=== PATIENT | female | born 1950 | race Caucasian/White ===

== ENCOUNTER 2018-07-02 13:04 | Outpatient (CLI) | payer MEDICARE, OTHER | END 2018-07-02 13:05 | disposition home or self-care (01) | LOC: RT 13:04 | PROVIDERS: ATTEND Internal Medicine | DX: R06.09 Other forms of dyspnea (principal) | CPT/HCPCS: 94010; 94729 ==

== ENCOUNTER 2018-07-05 13:31 | Outpatient (CLI) | payer MEDICARE, OTHER | END 2018-07-05 13:32 | disposition home or self-care (01) | LOC: DI 13:31 | PROVIDERS: ATTEND Internal Medicine | DX: R06.00 Dyspnea, unspecified (principal); I10 Essential (primary) hypertension; I77.810 Thoracic aortic ectasia | CPT/HCPCS: 93306 ==

== ENCOUNTER 2018-10-26 13:46 | Day surgery (SDC) | payer MEDICARE, OTHER ==
--- NOTE | 2018-10-26 14:25 | ANESTHESIA ---
Pre-Anesthesia VS, & Labs - Diagnosis gerd and screening - Procedure egd, colonoscopy Vital Signs: Temp Pulse Resp BP Pulse Ox 37 C 66 18 150/82 H 98 10/26/18 14:18 10/26/18 14:18 10/26/18 14:18 10/26/18 14:18 10/26/18 14:18 Height 5 ft 3 in Weight (kg) 73.7 kg - NPO >8 hours - Is Patient ?: Not Applicable Home Medications and Allergies Home Medications: Ambulatory Orders Calcium Carbonate [Calcium] 600 mg PO DAILY 10/25/18 Ranitidine HCl [Acid Control] 150 mg PO DAILY 10/25/18 Levothyroxine [Synthroid] 25 mcg PO DAILY 05/04/16 Montelukast [Singulair] 10 mg PO QPM 05/04/16 Calcium Carbonate [Calcium] 600 mg PO DAILY 10/25/18 Ranitidine HCl [Acid Control] 150 mg PO DAILY 10/25/18 Allergies/Adverse Reactions: Allergies Allergy/AdvReac Type Severity Reaction Status Date / Time aspirin Allergy Hives Verified 05/04/16 00:41 codeine Allergy Unknown Verified 05/04/16 00:41 ibuprofen Allergy Hives Verified 05/04/16 00:41 clarithromycin AdvReac Anxiety Verified 10/25/18 14:40 chocolate AdvReac Headache Uncoded 10/25/18 15:06 Anes History & Medical History - Anesthetic History Anesthesia Complications: reports: No previous complications Family history of Anesthesia Complications: Denies Family history of Malignant Hyperthermia: Denies - Medical History Cardiovascular: reports: None Gastrointestinal: reports: GERD, Colon polyps, Chronic diarrhea, Chronic constipation, Cholelithiasis Urinary: reports: None Musculoskeletal: reports: Osteoarthritis, Chronic back pain Endocrine/Autoimmune: reports: HyPOthyroidism Skin: reports: Eczema Smoking Status: Never smoker - Surgical History General: Colonoscopy Eyes Ears Nose Throat (EENT): Cataracts, Tonsil/Adenoidectomy Gynecologic: Dilation and currettage Exam General: Alert, Oriented x3, Cooperative, No acute distress Dental: Other (caps) Mouth Openin Fingerbreadth Neck Mobility: Normal Mallampati classification: II Thyromental Distance: 4-6 cm Respiratory: Lungs clear, Normal breath sounds, No respiratory distress, No accessory muscle use Cardiovascular: Regular rate, Normal S1, Normal S2, No murmurs Plan Anesthesia Type: MAC Consent for Procedure(s) Verified and Reviewed: No Code Status: Attempt Resuscitation ASA classification: 2-Mild systemic disease Is this case an emergency?: No
[2018-10-26] MEDS ORDERED: LACTATED RINGERS 1,000 ML IV ONE (14:37)
[2018-10-26] MEDS ORDERED: BENZOCAINE/TETRACAINE/BUTAMBEN 20 GM TOP ONE (15:15)
[2018-10-26] MEDS ORDERED: PROPOFOL 200 MG/20 ML VIAL IVP ONE (16:06)
[2018-10-26] MEDS ORDERED: LIDOCAINE-MPF 2% 5 ML VIAL IM ONE (16:06)
[2018-10-26 16:28] VITALS: BP 150/69
== END 2018-10-26 13:47 | disposition home or self-care (01) ==
LOC: SDS 13:46
PROVIDERS: ATTEND Internal Medicine
PROC: 0DB68ZX Excision of Stomach, Via Natural or Artificial Opening Endoscopic, Diagnostic (ICD-10-PCS; 2018-10-26)
PROC: 0DBE8ZX Excision of Large Intestine, Via Natural or Artificial Opening Endoscopic, Diagnostic (ICD-10-PCS; principal; 2018-10-26 14:45)
PROC: 0DB98ZX Excision of Duodenum, Via Natural or Artificial Opening Endoscopic, Diagnostic (ICD-10-PCS; 2018-10-26 14:45)
DX: K21.9 Gastro-esophageal reflux disease without esophagitis (principal); K57.30 Diverticulosis of large intestine without perforation or abscess without bleeding; K63.89 Other specified diseases of intestine; K64.8 Other hemorrhoids; E03.9 Hypothyroidism, unspecified
CPT/HCPCS: 43239; 45380; A9270; J7120

== ENCOUNTER 2019-05-06 18:54 | Emergency (ER) | payer MEDICARE, OTHER ==
[2019-05-06 19:02] VITALS: BP 158/89
--- NOTE | 2019-05-06 19:11 | ED Physician Documentation ---
PD HPI UPPER EXT INJURY - Stated complaint Stated Complaint: LT FINGER LAC - Chief complaint Chief Complaint: Laceration - History obtained from History obtained from: Patient - History of Present Illness Location: Left, Finger (3rd) Type of injury: Laceration Where injury occurred: Home Timing - details: Abrupt onset Pain level max: 2 Pain level now: 1 Improved by: Rest Worsened by: Moving, Palpating Contributing factors: No: Anticoagulated - Additonal information Additional information: Patient sustained a laceration to the left third digit, mainly across the nail. 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 HEENT: Cataracts, Tonsil/Adenoidectomy - Present Medications Home Medications: Ambulatory Orders Medication Instructions Recorded Confirmed Levothyroxine [Synthroid] 25 mcg PO DAILY 05/04/16 10/26/18 Montelukast [Singulair] 10 mg PO QPM 05/04/16 10/26/18 Calcium Carbonate [Calcium] 600 mg PO DAILY 10/25/18 10/26/18 - Allergies Allergies/Adverse Reactions: Allergies Allergy/AdvReac Type Severity Reaction Status Date / Time aspirin Allergy Hives Verified 05/06/19 19:02 codeine Allergy Unknown Verified 05/06/19 19:02 ibuprofen Allergy Hives Verified 05/06/19 19:02 shellfish derived Allergy Cramps Verified 05/06/19 19:02 clarithromycin AdvReac Anxiety Verified 05/06/19 19:02 chocolate AdvReac Headache Uncoded 05/06/19 19:02 - Social History Does the pt smoke?: No Smoking Status: Never smoker Does the pt drink ETOH?: No Does the pt have substance abuse?: No - Immunizations Immunizations are current?: Yes PD ED PE NORMAL - Vitals Vital signs reviewed: Yes - General General: Alert and oriented X 3, Well developed/nourished - HEENT HEENT: Moist mucous membranes - Derm Derm: Warm and dry - Extremities Extremities: Other (L 3rd digit - 0.2 cm laceration across the dorsum of the nail. No bleeding. Otherwise normal examination of the finger) - Neuro Neuro: Alert and oriented X 3 Results - Vitals Vitals: Vital Signs - 24 hr 05/06/19 18:58 Temperature 36.5 C Heart Rate 74 Respiratory 18 Rate Blood Pressure 158/89 H O2 Saturation 96 Oxygen O2 Source Room air PD MEDICAL DECISION MAKING - ED course Complexity details: considered differential, d/w patient ED course: Small laceration across the dorsum of the nail. Dermabond was applied so the nail will grow out together. Tetanus is up-to-date. Patient counseled regarding signs and symptoms for which I believe and urgent re-evaluation would be necessary. Patient with good understanding of and agreement to plan and is comfortable going home at this time This document was made in part using voice recognition software. While efforts are made to proofread this document, sound alike and grammatical errors may occur. No subungual hematoma. No active bleeding Departure - Departure Disposition: 01 Home, Self Care Clinical Impression: Finger laceration Qualifiers: Encounter type: initial encounter Finger: middle finger Damage to nail status: with damage Foreign body presence: without foreign body Laterality: left Qualified Code(s): S61.313A - Laceration without foreign body of left middle finger with damage to nail, initial encounter Condition: Good Instructions: ED Laceration Ext Skin Glue Follow-Up: SHIKHA SAGE ARNP [Primary Care Provider] - As Needed Comments: Return if you notice redness, swelling or drainage from the wound. Keeping a clear nail greek on that the fingernail will help to allow to grow out as 1 piece. Discharge Date/Time: 05/06/19 19:15
== END 2019-05-06 19:15 | disposition home or self-care (01) ==
LOC: ED 18:54
DX: S61.213A Laceration without foreign body of left middle finger without damage to nail, initial encounter (principal); W45.0XXA Nail entering through skin, initial encounter; Y92.009 Unspecified place in unspecified non-institutional (private) residence as the place of occurrence of the external cause; E03.9 Hypothyroidism, unspecified
CPT/HCPCS: 99281; 99282

== ENCOUNTER 2020-05-31 10:03 | Outpatient (CLI) | payer MEDICARE, OTHER | END 2020-05-31 10:04 | disposition home or self-care (01) | LOC: DI 10:03 | PROVIDERS: ATTEND Nurse Practitioner Family | DX: I71.9 Aortic aneurysm of unspecified site, without rupture (principal) | CPT/HCPCS: 93306 ==

== ENCOUNTER 2020-11-03 15:16 | Emergency (ER) | payer MEDICARE, OTHER ==
[2020-11-03 15:48] LABS: BILIRUBIN,URINE NEGATIVE (NEGATIVE); GLUCOSE, URINE (UA) NEGATIVE (NEGATIVE); KETONES,URINE (UA) NEGATIVE (NEGATIVE); LEUKOCYTE ESTERASE, URINE NEGATIVE (NEGATIVE); NITRITE,URINE NEGATIVE (NEGATIVE); OCCULT BLOOD,URINE SMALL (NEGATIVE); PROTEIN,URINE NEGATIVE (NEGATIVE); UROBILINOGEN,URINE 0.2 (NORMAL) E.U./dL (NORMAL)
[2020-11-03 15:52] LABS: CLARITY,URINE CLEAR (CLEAR)
[2020-11-03 16:16] LABS: BACTERIA,URINE None Seen /HPF (None Seen); RBC,URINE 0-5 /HPF (0-5); SQUAMOUS EPITHELIAL CELL,UR RARE Squamous (<= Few); WBC,URINE 0-3 /HPF (0-5)
[2020-11-03] MEDS ORDERED: SODIUM CHLORIDE 0.9% 1,000 ML IV STA (16:28)
--- NOTE | 2020-11-03 16:29 | ED Physician Documentation ---
PD HPI ABD PAIN - Stated complaint Stated Complaint: ABD PX - Chief complaint Chief Complaint: Abd Pain - History obtained from History obtained from: Patient - Additional information Additional information: 69-year-old woman with no history of abdominal surgeries save a D&C post childbirth presents with lower abdominal pain starting yesterday. Pain gets worse with bowel movements or with urinating but she does not have dysuria per se. She does have a history of diverticula on prior colonoscopy. She had some chills last night. She declines pain medication on initial evaluation. 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 and currettage HEENT: Cataracts, Tonsil/Adenoidectomy - Present Medications Home Medications: Ambulatory Orders Medication Instructions Recorded Confirmed Levothyroxine [Synthroid] 25 mcg PO DAILY 05/04/16 11/03/20 Montelukast [Singulair] 10 mg PO QPM 05/04/16 11/03/20 Calcium Carbonate [Calcium] 600 mg PO DAILY 10/25/18 11/03/20 Amox/Clav 875/125 [Augmentin] 1 each PO Q12H #20 tablet 11/03/20 Ipratropium Bandana 1 spray EMMANUEL BID 11/03/20 11/03/20 - Allergies Allergies/Adverse Reactions: Allergies Allergy/AdvReac Type Severity Reaction Status Date / Time aspirin Allergy Hives Verified 11/03/20 15:27 codeine Allergy Unknown Verified 11/03/20 15:27 ibuprofen Allergy Hives Verified 11/03/20 15:27 shellfish derived Allergy Cramps Verified 11/03/20 15:27 clarithromycin AdvReac Anxiety Verified 11/03/20 15:27 chocolate AdvReac Headache Uncoded 11/03/20 15:27 - Social History Does the pt smoke?: No Smoking Status: Never smoker Does the pt drink ETOH?: No Does the pt have substance abuse?: No - Immunizations Immunizations are current?: Yes PD ED PE NORMAL - Vitals Vital signs reviewed: Yes - General General: Alert and oriented X 3, No acute distress - HEENT HEENT: PERRL, EOMI - Neck Neck: Supple, no meningeal sign, No bony TTP - Cardiac Cardiac: RRR, No murmur - Respiratory Respiratory: No respiratory distress, Clear bilaterally - Abdomen Abdomen: Other (Focally tender in the suprapubic and right lower quadrant area without surgical signs.) - Back Back: No CVA TTP, No spinal TTP - Derm Derm: Normal color, Warm and dry - Extremities Extremities: No edema, No calf tenderness / cord - Neuro Neuro: Alert and oriented X 3, Normal speech Results - Vitals Vitals: Vital Signs - 24 hr 11/03/20 11/03/20 15:20 17:26 Temperature 98.1 C H Heart Rate 92 99 Respiratory 16 18 Rate Blood Pressure 147/72 H 143/73 H O2 Saturation 97 97 Oxygen O2 Source Room air - Labs Labs: Laboratory Tests 11/03/20 11/03/20 11/03/20 15:43 16:44 16:44 WBC 12.4 H RBC 4.00 L Hgb 12.5 Hct 36.7 L MCV 91.8 MCH 31.3 H MCHC 34.1 RDW 12.4 Plt Count 206 MPV 9.4 Neut # (Auto) 9.7 H Lymph # (Auto) 1.5 [place] # (Auto) 1.1 H Eos # (Auto) 0.0 Baso # (Auto) 0.0 Absolute Nucleated RBC 0.00 Nucleated RBC % 0.0 Sodium 135 Potassium 3.5 Chloride 101 Carbon Dioxide 25 Anion Gap 9.0 BUN 11 Creatinine 0.8 Estimated GFR (MDRD) 71 L Glucose 115 H Calcium 8.8 Total Bilirubin 0.8 AST 14 ALT 13 Alkaline Phosphatase 56 Total Protein 6.6 L Albumin 4.1 Globulin 2.5 Albumin/Globulin Ratio 1.6 Lipase 22 Urine Color LT. YELLOW Urine Clarity CLEAR Urine pH 6.0 Ur Specific [place] <=1.005 Urine Protein NEGATIVE Urine Glucose (UA) NEGATIVE Urine Ketones NEGATIVE Urine Occult Blood SMALL H Urine Nitrite NEGATIVE Urine Bilirubin NEGATIVE Urine Urobilinogen 0.2 (NORMAL) Ur Leukocyte Esterase NEGATIVE Urine RBC 0-5 Urine WBC 0-3 Ur Squamous Epith Cells RARE Squamous Urine Bacteria None Seen Ur Microscopic Review INDICATED Urine Culture Comments NOT INDICATED - Rads (name of study) CT a/p Radiology: EMP read contemporaneously PD MEDICAL DECISION MAKING - ED course ED course: 69-year-old woman with lower abdominal pain of 2 days duration with some chills last night. CT with evidence of chronic cholecystitis as well as concern for uncomplicated diverticulitis. I had a long discussion with her about dietary advice as well as current recommendations per the [place] [employer] regarding antibiotics. After discussion she would like to take a prescription for Augmentin as a [id number] approach but not started immediately. Departure - Departure Disposition: Home, Self Care Clinical Impression: Diverticulitis of gastrointestinal tract Condition: Good Record reviewed to determine appropriate education?: Yes Instructions: ED Diverticulitis Follow-Up: Tyson Jones MD [Provider Admit Priv/Credential] - Prescriptions: Amox/Clav 875/125 [Augmentin] 1 each PO Q12H #20 tablet Comments: As discussed, it looks like you have uncomplicated diverticulitis tonight. You also have evidence for potential chronic cholecystitis. For the chronic cholecystitis you can follow-up with the general surgeon listed on this form. For the diverticulitis, after discussion we have decided to give you a prescription for antibiotics, but with a "wait and see approach. If not better over the next couple of days or if worsening you can start the antibiotics. Either way you should do a clear liquid diet for the next 48 hours or so, and then a low residual diet for a day or 2 after that. Return for new or worsening symptoms, especially high fevers. Follow-up with your doctor regardless.
[2020-11-03] MEDS ORDERED: IOVERSOL 320 100 ML VIAL IVP ONE ×2 (16:32→17:33)
[2020-11-03 16:52] LABS: BASOPHILS % (AUTO) 0.3 %; EOSINOPHILS % (AUTO) 0.3 %; HCT - HEMATOCRIT 36.7 % (37.0-47.0); HGB - HEMOGLOBIN 12.5 g/dL (12.0-16.0); LYMPHOCYTES # (AUTO) 1.5 10^3/uL (1.5-3.5); LYMPHOCYTES % (AUTO) 11.9 %; MEAN CORPUSCULAR HEMOGLOBIN 31.3 pg (27.0-31.0); MEAN CORPUSCULAR HGB CONC 34.1 g/dL (32.0-36.0); MEAN CORPUSCULAR VOLUME 91.8 fL (81.0-99.0); MEAN PLATELET VOLUME 9.4 fL (7.9-10.8); MONOCYTES # (AUTO) 1.1 10^3/uL (0.0-1.0); MONOCYTES % (AUTO) 9.1 %; NEUTROPHILS # (AUTO) 9.7 10^3/uL (1.5-6.6); NEUTROPHILS % (AUTO) 78.1 %; PLT - PLATELET COUNT 206 10^3/uL (130-450); RED CELL DISTRIBUTION WIDTH 12.4 % (12.0-15.0); WHITE BLOOD COUNT 12.4 x10^3/uL (4.8-10.8)
[2020-11-03 17:02] LABS: ALBUMIN 4.1 g/dL (3.2-5.5); ALBUMIN/GLOBULIN RATIO 1.6 (1.0-2.2); BILIRUBIN,TOTAL 0.8 mg/dL (0.2-1.0); CALCIUM 8.8 mg/dL (8.5-10.3); CREATININE 0.8 mg/dL (0.4-1.0); POTASSIUM 3.5 mmol/L (3.5-5.0); TOTAL PROTEIN 6.6 g/dL (6.7-8.2)
[2020-11-03 17:33] VITALS: BP 143/73
--- NOTE | 2020-11-03 18:01 | CT Report ---
PROCEDURE: Abdomen/Pelvis W INDICATIONS: low abd pain CONTRAST: IV CONTRAST: Optiray 320 ml: 100 PO CONTRAST: *NO PO CONTRAST TECHNIQUE: After the administration of intravenous contrast, 5 mm thick sections acquired from the diaphragms to the symphysis. 5 mm thick coronal and sagittal reformats were acquired. For radiation dose reducti on, the following was used: automated exposure control, adjustment of mA and/or kV according to taryn ent size. COMPARISON: 05/04/2016. FINDINGS: Image quality: Excellent. ABDOMEN: Lung bases: Lung bases are clear. Heart size is normal. Solid organs: Liver and spleen are normal in size and enhancement. Multiple low-density liver lesion s are stable, and likely represent liver cysts and possible hemangiomata. Gallbladder contains [place] calcified gallstones and demonstrates mild gallbladder wall thickening. The appearance is similar to the earlier study. Biliary system is non dilated. Pancreas enhances normally. No adrenal nodule s. Kidneys demonstrate normal size and enhancement, without hydronephrosis. Peritoneum and bowel: There is acute diverticulitis involving the region of the rectosigmoid junction . There are diverticuli and there is wall edema. There is inflammatory change in the adjacent fat. Co uld community relations representative images are images 63 and 64 of series 3. There is no free air or abscess cavity. N o free fluid. Nodes and vessels: No retroperitoneal or mesenteric adenopathy by size criteria. Aorta and inferior vena cava are normal in size. Miscellaneous: No ventral hernias. PELVIS: Genitourinary: Bladder wall thickness is normal. Miscellaneous: There is a small right inguinal hernia containing minimal fluid. Bones: No suspicious bony lesions. No vertebral body compression fractures. Lumbar degenerative ch xuan. Degenerative anterolisthesis of L4 on L5 with posterior disc bulge and facet and ligament hyper trophy result in at least moderate canal stenosis. IMPRESSION: 1. Acute diverticulitis of the rectosigmoid region. 2. Gallbladder findings may indicate chronic cholecystitis. 3. Small right inguinal hernia containing fat and a small amount of fluid. 4. Incidental note made of canal stenosis at L4-L5. Reviewed by: Danielito Brennan MD on 11/03/2020 5:00 PM JANINE Approved by: Danielito Brennan MD on 11/03/2020 5:00 PM AKSHIRLENE Station ID: [id number]
== END 2020-11-03 18:17 | disposition home or self-care (01) ==
LOC: ED 15:16
DX: K57.32 Diverticulitis of large intestine without perforation or abscess without bleeding (principal); R93.2 Abnormal findings on diagnostic imaging of liver and biliary tract
CPT/HCPCS: 36415; 74177; 80053; 81001; 83690; 85025; 96360; 99284; Q9967; 81003; 87086

== ENCOUNTER 2021-07-18 13:57 | Outpatient (CLI) | payer MEDICARE ==
--- NOTE | 2021-07-18 17:06 | DEXA Report ---
PROCEDURE: Dexa Spine and/or Hip INDICATIONS: AGE RELATED OSTEOPOROSIS W/O PATHOLOGICAL FX TECHNIQUE: Dual energy x-ray absorptiometry (DXA) was performed on a [employer] System. Regions measur ed are the AP Spine, femoral neck, and if needed forearm. COMPARISON: None. FINDINGS: Lumbar Spine: Bone Mineral Density 0.933 g/cm/cm,T score -2.1 Left Hip: Bone Mineral Density 0.843 g/cm/cm,T score -1.3 Left Femoral Neck: Bone Mineral Density 0.789 g/cm/cm, T score -1.8 (T score greater or equal to -1.0: NORMAL) (T score from -1.1 to -2.4: OSTEOPENIA) (T score less than or equal to -2.5 to: OSTEOPOROSIS) Impression: Osteopenia of the lumbar spine and left hip. Patients with diagnosis of osteoporosis or osteopenia should have regular bone mineral density assess ment. For those eligible for Medicare, routine testing is allowed once every 2 years. Testing frequ ency can be increased for patients who have rapidly progressing disease or for those who are receivin g medical therapy to restore bone mass. Reviewed by: So Vaca MD on 07/18/2021 5:05 PM PST Approved by: So Vaca MD on 07/18/2021 5:05 PM PST Station ID: [id number]
== END 2021-07-18 13:58 | disposition home or self-care (01) ==
LOC: DI 13:57
PROVIDERS: ATTEND Nurse Practitioner Family
DX: Z78.0 Asymptomatic menopausal state (principal); M85.89 Other specified disorders of bone density and structure, multiple sites

== ENCOUNTER 2021-07-24 10:58 | Outpatient (CLI) | payer MEDICARE ==
--- NOTE | 2021-07-24 15:04 | Ultrasound Report ---
PROCEDURE: Head or Neck Soft Tissue INDICATIONS: PAINFUL SWALLOWING. TECHNIQUE: Real-time scanning was performed of the thyroid gland, with image documentation. COMPARISON: None FINDINGS: Right: Thyroid lobe measures 3.7 x 1.4 x 1.4 cm, and is homogeneous in echotexture. Left: Removed. Isthmus: Removed IMPRESSION: Left lobe and isthmus resection. No enlarged lymph nodes or masses. Reviewed by: Josephine Baeza MD on 07/24/2021 3:03 PM PDT Approved by: Josephine Baeza MD on 07/24/2021 3:03 PM PDT Station ID: [id number]
== END 2021-07-24 10:59 | disposition home or self-care (01) ==
LOC: DI 10:58
PROVIDERS: ATTEND Nurse Practitioner Family
DX: R13.19 Other dysphagia (principal); E89.0 Postprocedural hypothyroidism

== ENCOUNTER 2021-09-08 10:04 | Outpatient (CLI) | payer MEDICARE ==
--- NOTE | 2021-09-15 13:21 | Mammography Report ---
BILATERAL DIGITAL SCREENING MAMMOGRAM 3D/2D: 09/08/2021 CLINICAL: Routine screening. Family history of breast cancer. No prior exams were available for comparison. The tissue of both breasts is predominantly fatty. There is a possible an asymmetry with grouped fine calcifications in the right breast central to the nipple anterior depth. There is axillary adenopathy associated with the asymmetry. There also is a possible an asymmetry with grouped fine calcifications in the right breast at 9 o'devante ck middle depth. There is architectural distortion associated with the asymmetry. Additionally, there is a possible an asymmetry with grouped fine calcifications in the right breast a t 11 o'clock middle depth. There is architectural distortion associated with the asymmetry. There is a possible an asymmetry with grouped fine calcifications in the left breast at 1 o'clock mid dle depth. No other significant masses or calcifications are seen in either breast. IMPRESSION: INCOMPLETE: NEEDS ADDITIONAL IMAGING EVALUATION The possible asymmetry in the right breast central to the nipple anterior depth is indeterminate. Ad ditional views with possible ultrasound are recommended. The possible asymmetry in the right breast at 9 o'clock middle depth is indeterminate. Additional vi ews with possible ultrasound are recommended. The possible asymmetry in the right breast at 11 o'clock middle depth is indeterminate. Additional v iews with possible ultrasound are recommended. The possible asymmetry in the left breast at 1 o'clock middle depth is indeterminate. Additional vie ws with possible ultrasound are recommended. This exam was interpreted at Station ID: [id number]. NOTE: For mammograms, a report in lay terms will be sent to the patient. Approximately 15% of breast malignancies will not be visualized mammographically. In the management of a palpable breast mass, a negative mammogram must not discourage biopsy of a clinically suspicious lesion. Electronically Signed By: Orestes Gardner M.D., jr/lizbeth:09/15/2021 10:05:19 ACR BI-RADS Category 0: Incomplete 3340F PARENCHYMAL PATTERN: (F) - The breast(s) demonstrate(s) diffuse fatty replacement. BI-RADS CATEGORY: (0) - 0 Mammo and [place] [id number] Immediate follow-up LATERALITY: (B)
== END 2021-09-08 10:05 | disposition home or self-care (01) ==
LOC: DI.S 10:04
PROVIDERS: ATTEND Nurse Practitioner Family
DX: Z12.31 Encounter for screening mammogram for malignant neoplasm of breast (principal); Z80.3 Family history of malignant neoplasm of breast; R92.8 Other abnormal and inconclusive findings on diagnostic imaging of breast

== ENCOUNTER 2021-11-19 10:17 | Outpatient (CLI) | payer MEDICARE ==
--- NOTE | 2021-11-20 14:37 | Mammography Report ---
BILATERAL DIGITAL DIAGNOSTIC MAMMOGRAM 3D/2D: 11/19/2021 CLINICAL: Patient returns today to evaluate asymmetries and calc in bilateral breasts. Comparison is made to exams dated: 11/15/2015 mammogram, 08/15/2014 mammogram, 04/28/2013 mammogram, and 04/14/2013 mammogram - [facility]. The tissue of both breasts is predominantly fatty. The possible benign asymmetry in the right breast central to the nipple anterior depth is not reprodu eliud and presumably represented superimposed breast tissue. This is not seen in additional views. The possible benign asymmetry with grouped fine calcifications in the right breast at 9 o'clock middl e depth is not reproduced and presumably represented superimposed breast tissue. This is not seen in additional views. The possible benign asymmetry in the right breast at 11 o'clock middle depth is not reproduced and pr esumably represented superimposed breast tissue. This is not seen in additional views. The possible benign asymmetry with grouped fine calcifications in the left breast at 1 o'clock middle depth is not reproduced and presumably represented superimposed breast tissue. No other significant masses or calcifications are seen in either breast. IMPRESSION: BENIGN There is no mammographic evidence of malignancy. Return to annual mammogram screening schedule is rec ommended. Based on the Tyrer Cuzick model (a risk assessment model) the patients lifetime risk is 4.0% and her 10 year risk is 3.0%. According to the ACR, ACS, and NCCN guidelines, an annual breast MRI exam carmen g with mammogram is recommended if the patients lifetime risk is 20% or greater. This exam was interpreted at Station ID: [id number]. NOTE: For mammograms, a report in lay terms will be sent to the patient. Approximately 15% of breast malignancies will not be visualized mammographically. In the management of a palpable breast mass, a negative mammogram must not discourage biopsy of a clinically suspicious lesion. Electronically Signed By: Raul Garcia acr/:11/19/2021 11:31:13 ACR BI-RADS Category 2: Benign Finding(s) 3342F PARENCHYMAL PATTERN: (F) - The breast(s) demonstrate(s) diffuse fatty replacement. BI-RADS CATEGORY: (2) - 2 Mammogram [id number] return to screening LATERALITY: (B)
== END 2021-11-19 10:18 | disposition home or self-care (01) ==
LOC: DI 10:17
PROVIDERS: ATTEND Nurse Practitioner Family
DX: R92.8 Other abnormal and inconclusive findings on diagnostic imaging of breast (principal)

== ENCOUNTER 2023-07-15 08:00 | Outpatient (CLI) | payer MEDICARE ==
--- NOTE | 2023-07-16 13:25 | XRAY Report ---
PROCEDURE: Hand 3+V RT INDICATIONS: RIGHT HAND PAIN TECHNIQUE: 3 views of the hand(s) acquired. COMPARISON: None. FINDINGS: Bones: No fractures or dislocations. Mild phalangeal joint degeneration. Severe degenerative change s of the first CMC and triscaphe joint. Diffusely decreased osseous mineralization. No suspicious bon y lesions. Soft tissues: No suspicious soft tissue calcifications or masses. IMPRESSION: No acute bony abnormality. Severe degenerative changes of the first CMC and triscaphe joint. Reviewed by: Irving Wong MD on 07/16/2023 1:24 PM PST Approved by: Irving Wong MD on 07/16/2023 1:24 PM [facility] Station ID: [id number]
== END 2023-07-15 23:59 | disposition home or self-care (01) ==
LOC: DI.S 08:00
PROVIDERS: ATTEND Registered Nurse
DX: M18.11 Unilateral primary osteoarthritis of first carpometacarpal joint, right hand (principal); M19.031 Primary osteoarthritis, right wrist

== ENCOUNTER 2023-08-20 16:35 | Outpatient (CLI) | payer MEDICARE ==
--- NOTE | 2023-08-21 16:58 | XRAY Report ---
PROCEDURE: Shoulder 2+V RT INDICATIONS: FROZEN RT SHOULDER TECHNIQUE: 3 views of the shoulder were acquired. COMPARISON: None. FINDINGS: Bones: No fractures or dislocations. No suspicious bony lesions. Visualized ribs appear intact. Moderate acromioclavicular and glenohumeral degenerative narrowing. Minimal periarticular osteophytes are present. Soft tissues: No suspicious soft tissue calcifications. The visualized lungs are within normal limi ts. IMPRESSION: Acromioclavicular and glenohumeral arthritic change. Reviewed by: Josephine Baeza MD on 08/21/2023 4:57 PM PDT Approved by: Josephine Baeza MD on 08/21/2023 4:57 PM PDT Station ID: [id number]
--- NOTE | 2023-08-21 17:02 | XRAY Report ---
PROCEDURE: Hand 3+V LT INDICATIONS: OSTEOARTHRITIES TECHNIQUE: 3 views of the hand(s) acquired. COMPARISON: None. FINDINGS: Bones: No fractures or dislocations. No suspicious bony lesions. Moderate to severe IP degenerati ve narrowing including severe first CMC change. Areas of subchondral sclerosis are present most sever e at the first CMC joint. Scattered areas of periarticular osteophytes are present. There are periart icular lucencies identified at the DIP joint of the third digit. There is subluxation at the second D IP and first DIP joints. Soft tissues: No suspicious soft tissue calcifications or masses. IMPRESSION: Moderate to severe arthritic change most severe at the third DIP and first CMC joints. Areas of periarticular lucency are most prominent at the third DIP joint suggestive of subchondral cy st. However, erosions cannot be excluded and recommend correlation to patient's symptoms and laborato ry values. Reviewed by: Josephine Baeza MD on 08/21/2023 5:00 PM PDT Approved by: Josephine Baeza MD on 08/21/2023 5:00 PM PDT Station ID: [id number]
--- NOTE | 2023-08-21 17:06 | XRAY Report ---
PROCEDURE: Cervical Spine w/Flex/Ext 6+V INDICATIONS: NECK ARTHRALGIA,FROZEN RT SHOULDER, OSTEOARTHRITIE TECHNIQUE: 7 views of the cervical spine were acquired. COMPARISON: None. FINDINGS: Bones: No fractures or dislocations to the 17th 1 level. No suspicious bony lesions. Multilevel deg enerative disc space narrowing most severe at C3-4 and C5-6, C6-7. Very minimal anterior osteophytes are present. Multilevel uncovertebral arthropathy is present. Minimal foraminal narrowing is present bilaterally most prominent at C5-6, C6-7. There is normal range of motion between flexion and extensi on, with preserved normal bony alignment. Soft tissues: Prevertebral soft tissues are normal in thickness. IMPRESSION: Multilevel degenerative changes as described above. Reviewed by: Josephine Baeza MD on 08/21/2023 5:05 PM PDT Approved by: Josephine Baeza MD on 08/21/2023 5:05 PM PDT Station ID: [id number]
== END 2023-08-20 16:36 | disposition home or self-care (01) ==
LOC: DI.S 16:35
PROVIDERS: ATTEND Internal Medicine
DX: M19.011 Primary osteoarthritis, right shoulder (principal); M18.12 Unilateral primary osteoarthritis of first carpometacarpal joint, left hand; M19.042 Primary osteoarthritis, left hand; M47.812 Spondylosis without myelopathy or radiculopathy, cervical region

== ENCOUNTER 2023-10-05 14:28 | Emergency (ER) | payer MEDICARE ==
[2023-10-05 15:09] LABS: BASOPHILS % (AUTO) 0.6 %; EOSINOPHILS % (AUTO) 0.3 %; HGB - HEMOGLOBIN 12.6 g/dL (12.0-16.0); LYMPHOCYTES # (AUTO) 0.8 10^3/uL (1.5-3.5); LYMPHOCYTES % (AUTO) 11.8 %; MEAN CORPUSCULAR HEMOGLOBIN 30.7 pg (27.0-31.0); MEAN CORPUSCULAR HGB CONC 33.2 g/dL (32.0-36.0); MEAN CORPUSCULAR VOLUME 92.5 fL (81.0-99.0); MEAN PLATELET VOLUME 9.9 fL (7.9-10.8); MONOCYTES # (AUTO) 0.9 10^3/uL (0.0-1.0); MONOCYTES % (AUTO) 13.2 %; NEUTROPHILS % (AUTO) 73.8 %; PLT - PLATELET COUNT 189 10^3/uL (130-450); RED BLOOD COUNT 4.11 10^6/uL (4.20-5.40); RED CELL DISTRIBUTION WIDTH 12.6 % (12.0-15.0); WHITE BLOOD COUNT 6.8 x10^3/uL (4.8-10.8)
[2023-10-05 15:26] LABS: ALBUMIN/GLOBULIN RATIO 1.8 (1.0-2.2); BILIRUBIN,TOTAL 0.5 mg/dL (0.2-1.0); CALCIUM 9.4 mg/dL (8.5-10.3); CREATININE 0.9 mg/dL (0.6-1.3); POTASSIUM 3.4 mmol/L (3.5-4.5); TOTAL PROTEIN 6.2 g/dL (6.4-8.9)
[2023-10-05 16:50] LABS: BILIRUBIN,URINE NEGATIVE (NEGATIVE); GLUCOSE, URINE (UA) NEGATIVE (NEGATIVE); KETONES,URINE (UA) NEGATIVE (NEGATIVE); LEUKOCYTE ESTERASE, URINE NEGATIVE (NEGATIVE); NITRITE,URINE NEGATIVE (NEGATIVE); OCCULT BLOOD,URINE NEGATIVE (NEGATIVE); PROTEIN,URINE NEGATIVE (NEGATIVE); UROBILINOGEN,URINE 0.2 (NORMAL) E.U./dL (NORMAL)
[2023-10-05 16:51] LABS: CLARITY,URINE CLEAR (CLEAR)
--- NOTE | 2023-10-05 18:10 | ED Physician Documentation ---
History of Present Illness - Stated complaint Stated Complaint: RT ABD PX - Chief complaint Chief Complaint: Abd Pain - History obtained from History obtained from: Patient - History of Present Illness Timing: Today Pain level max: 7 Pain level now: 7 - Additonal information Additional information: Patient is a 72-year-old female who presents to the emergency department with right lower quadrant abdominal pain that started about 4-1/2 hours ago. She states that she sometimes has a lump that goes in and out. She states that today the lump would not go back in and became hard. She states she has diffuse abdominal pain now. No vomiting. Nothing makes it better. Worse with palpation and movement. No diarrhea or constipation. No dysuria or urinary frequency. Review of Systems Constitutional: denies: Fever, Chills Respiratory: denies: Cough GI: denies: Vomiting, Diarrhea Skin: denies: Rash Musculoskeletal: denies: Neck pain, Back pain Neurologic: denies: Headache PD PAST MEDICAL HISTORY - Past Medical History Cardiovascular: None Respiratory: Sleep apnea Endocrine/Autoimmune: HyPOthyroidism GI: GERD, Colon polyps, Chronic diarrhea, Chronic constipation, Diverticulitis, Cholelithiasis : None HEENT: Chronic vision loss Psych: Anxiety, Post traumatic stress disorder Musculoskeletal: Osteoarthritis, Chronic back pain Derm: Eczema - Past Surgical History Past Surgical History: Yes 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 HEENT: Cataracts, Tonsil/Adenoidectomy - Present Medications Home Medications: Ambulatory Orders Medication Instructions Recorded Confirmed Levothyroxine [Synthroid] 25 mcg PO DAILY 05/04/16 11/03/20 Montelukast [Singulair] 10 mg PO QPM 05/04/16 11/03/20 Calcium Carbonate [Calcium] 600 mg PO DAILY 10/25/18 11/03/20 Amox/Clav 875/125 [Augmentin] 1 each PO Q12H #20 tablet 11/03/20 Ipratropium [place] 1 spray EMMANUEL BID 11/03/20 11/03/20 - Allergies Allergies/Adverse Reactions: Allergies Allergy/AdvReac Type Severity Reaction Status Date / Time aspirin Allergy Hives Verified 10/05/23 14:44 codeine Allergy Unknown Verified 10/05/23 14:44 ibuprofen Allergy Hives Verified 10/05/23 14:44 shellfish derived Allergy Cramps Verified 10/05/23 14:44 clarithromycin AdvReac Anxiety Verified 10/05/23 14:44 chocolate AdvReac Headache Uncoded 10/05/23 14:44 - Social History Does the pt smoke?: No Smoking Status: Never smoker Does the pt drink ETOH?: No Does the pt have substance abuse?: No - Immunizations Immunizations are current?: Yes PD ED PE NORMAL - Vitals Vital signs reviewed: Yes - General General: Alert and oriented X 3, No acute distress - HEENT HEENT: Moist mucous membranes - Neck Neck: Supple, no meningeal sign - Cardiac Cardiac: RRR, Strong equal pulses - Respiratory Respiratory: No respiratory distress, Clear bilaterally - Abdomen Abdomen: Soft, Other (Small firm lump consistent with a femoral hernia. Reducible in the emergency department but was tender with palpation. Otherwise benign abdominal exam) - Back Back: No CVA TTP, No spinal TTP - Derm Derm: Warm and dry - Neuro Neuro: Alert and oriented X 3 Results - Vitals Vitals: Vital Signs - 24 hr 10/05/23 10/05/23 14:41 19:39 Temperature 36.8 C Heart Rate 76 76 Respiratory 18 16 Rate Blood Pressure 143/72 H 135/69 H O2 Saturation 99 94 Oxygen O2 Source Room air - Labs Labs: Laboratory Tests 10/05/23 10/05/23 10/05/23 14:52 14:52 16:45 WBC 6.8 RBC 4.11 L Hgb 12.6 Hct 38.0 MCV 92.5 MCH 30.7 MCHC 33.2 RDW 12.6 Plt Count 189 MPV 9.9 Neut # (Auto) 5.0 Lymph # (Auto) 0.8 L [place] # (Auto) 0.9 Eos # (Auto) 0.0 Baso # (Auto) 0.0 Absolute Nucleated RBC 0.00 Nucleated RBC % 0.0 Sodium 133 L Potassium 3.4 L Chloride 99 L Carbon Dioxide 27 Anion Gap 7.0 BUN 17 Creatinine 0.9 Estimated GFR (MDRD) 61 L Glucose 146 H Calcium 9.4 Total Bilirubin 0.5 AST 12 ALT 7 L Alkaline Phosphatase 78 Total Protein 6.2 L Albumin 4.0 Globulin 2.2 Albumin/Globulin Ratio 1.8 Lipase 27 Urine Color YELLOW Urine Clarity CLEAR Urine pH 7.0 Ur Specific [place] 1.015 Urine Protein NEGATIVE Urine Glucose (UA) NEGATIVE Urine Ketones NEGATIVE Urine Occult Blood NEGATIVE Urine Nitrite NEGATIVE Urine Bilirubin NEGATIVE Urine Urobilinogen 0.2 (NORMAL) Ur Leukocyte Esterase NEGATIVE Ur Microscopic Review NOT INDICATED Urine Culture Comments NOT INDICATED PD Medical Decision Making - ED course Complexity details: reviewed results, re-evaluated patient, considered differential, d/w patient ED course: Patient's hernia was reduced in the emergency department. She was given a dose of Tylenol. Her pain resolved. Tolerating p.o. without difficulty. Abdomen is soft, nontender nondistended on serial exam. No elevated anion gap. Carbon dioxide is normal. No evidence of ischemic bowel. No pain with eating and drinking. No vomiting. Recommend that she follow-up with her doctor as an outpatient for management of the hernia. Patient counseled regarding signs and symptoms for which I believe and urgent re-evaluation would be necessary. Patient with good understanding of and agreement to plan and is comfortable going home at this time This document was made in part using voice recognition software. While efforts are made to proofread this document, sound alike and grammatical errors may occur. Departure - Departure Disposition: 01 Home, Self Care Clinical Impression: Hernia Condition: Good Instructions: ED Hernia Inguinal Follow-Up: Fior De La Torre MD [Primary Care Provider] - [facility] [Provider Group] Sami Gaston MD [Provider Admit Priv/Credential] - Comments: You have a hernia on your right side. This was reduced in the emergency department. It is recommended that you follow-up with a surgeon to discuss operative repair. Please return if the hernia becomes stuck and painful again. Please return if you worsen. Forms: PCP List Discharge Date/Time: 10/05/23 19:43
[2023-10-05] MEDS: SODIUM CHLORIDE 0.9% 500 ML IV STA (18:27)
[2023-10-05] MEDS: ACETAMINOPHEN 325 MG TABLET PO STA (18:40)
[2023-10-05] MEDS: MORPHINE 2 MG/ML CARPUJECT IVP STA (18:46)
[2023-10-05 19:45] VITALS: BP 135/69; O2SAT 94
== END 2023-10-05 19:43 | disposition home or self-care (01) ==
LOC: ED 14:28
DX: K41.90 Unilateral femoral hernia, without obstruction or gangrene, not specified as recurrent (principal)
CPT/HCPCS: 36415; 80053; 81003; 83690; 85025; 99283; A9270; 81001; 87086

== ENCOUNTER 2023-10-19 08:00 | Outpatient (CLI) | payer MEDICARE ==
--- NOTE | 2023-10-19 12:03 | XRAY Report ---
PROCEDURE: Chest 2V INDICATIONS: BRONCHITIS TECHNIQUE: 2 views of the chest were acquired. COMPARISON: None. FINDINGS: Surgical changes and devices: None. Lungs and pleura: Mild bilateral interstitial prominence. No focal consolidation. No pleural effusio ns or pneumothorax. Mediastinum: Mediastinal contours appear normal. Heart size is normal. Bones and chest wall: No suspicious bony lesions. Overlying soft tissues appear unremarkable. IMPRESSION: 1. No acute cardiopulmonary process. 2. Mild bilateral interstitial prominence. Reviewed by: Susan Mejias MD on 10/19/2023 11:02 AM JANINE Approved by: Susan Mejias MD on 10/19/2023 11:02 AM JANINE Station ID: [id number]
== END 2023-10-19 23:59 | disposition home or self-care (01) ==
LOC: DI.S 08:00
PROVIDERS: ATTEND Physician Assistant
DX: J40 Bronchitis, not specified as acute or chronic (principal); R05.9 Cough, unspecified

== ENCOUNTER 2023-10-22 15:11 | Outpatient (CLI) | payer MEDICARE ==
--- NOTE | 2023-10-22 21:58 | MRI Report ---
PROCEDURE: Shoulder RT WO INDICATIONS: FROZEN R SHOULDER TECHNIQUE: Noncontrast oblique coronal T2 fast spin echo with fat saturation, oblique sagittal T1 spin echo and T2 fast spin echo with fat saturation, axial T1 spin echo and T2 fast spin echo with fat saturation t hrough the shoulder. COMPARISON: Right shoulder radiograph dated 08/20/2023. FINDINGS: Image quality: Excellent. Rotator cuff: Moderate grade articular surface partial-thickness tear involving anterior fibers of di stal supraspinatus at its insertion on humeral head. There is moderate to high-grade bursal surface p artial-thickness tear involving posterior fibers of supraspinatus near musculotendinous junction. Dis howard infraspinatus tendinosis is seen. Low-grade intrasubstance partial thickness involving superior f ibers of distal subscapularis is also noted. No full-thickness rotator cuff tendon rupture. Mild supr aspinatus muscle atrophy is seen on sagittal images. Bones and bursae: No bone marrow contusions or fractures. [id number] acromioclavicular joint o steoarthritic changes are seen. Type II acromion. Moderate joint effusion and subacromial subdeltoid bursal fluid, no gross loose bodies. Bursitis cannot be excluded. Capsule and soft tissues: There is signal abnormality and fraying of superior anterior labrum suggest cinda of superior anterior labral tear. The long head of the biceps tendon demonstrates normal location and morphology. The rotator interval appears normal, without fibrosis. The coracohumeral ligament appearance thickened. Thickened inferior glenohumeral ligament is also noted. IMPRESSION: 1. Thickened inferior glenohumeral ligament and coracohumeral ligament which can be seen associated w ith adhesive capsulitis, suggest clinical correlation. 2. Moderate grade articular surface partial-thickness tear involving anterior fibers of distal supras pinatus at its insertion on humeral head. Moderate to high-grade bursal surface partial-thickness inv olving posterior fibers of supraspinatus near musculotendinous junction. Mild supraspinatus muscle at rophy. 3. Distal infraspinatus tendinosis. Low-grade partial-thickness tear involving superior fibers of dis howard subscapularis. No full-thickness rotator cuff tendon rupture. 4. Mild to moderate acromioclavicular joint osteoarthritis. No fracture or dislocation. Moderate join t effusion and subacromial subdeltoid bursal fluid, low-grade bursitis cannot be excluded. 5. Suggestion of superior anterior labral tear at 12 to 1:00 position. Reviewed by: Fito Ahumada MD on 10/22/2023 9:56 PM PDT Approved by: Fito Ahumada MD on 10/22/2023 9:56 PM PDT Station ID: [id number]
== END 2023-10-22 15:12 | disposition home or self-care (01) ==
LOC: DI 15:11
PROVIDERS: ATTEND Internal Medicine
DX: M75.01 Adhesive capsulitis of right shoulder (principal); M75.111 Incomplete rotator cuff tear or rupture of right shoulder, not specified as traumatic; M62.511 Muscle wasting and atrophy, not elsewhere classified, right shoulder; M19.011 Primary osteoarthritis, right shoulder

== ENCOUNTER 2023-11-02 22:30 | Outpatient (CLI) | payer MEDICARE | END 2023-11-02 23:59 | disposition critical access hospital (66) | LOC: EMS 22:30 | DX: R10.31 Right lower quadrant pain (principal) | CPT/HCPCS: A0425; A0429 ==

== ENCOUNTER 2023-11-02 23:06 | Emergency (ER) | payer MEDICARE ==
[2023-11-02 23:36] LABS: BASOPHILS % (AUTO) 0.4 %; EOSINOPHILS # (AUTO) 0.1 10^3/uL (0.0-0.7); EOSINOPHILS % (AUTO) 0.9 %; HCT - HEMATOCRIT 35.9 % (37.0-47.0); HGB - HEMOGLOBIN 12.3 g/dL (12.0-16.0); LYMPHOCYTES # (AUTO) 0.8 10^3/uL (1.5-3.5); LYMPHOCYTES % (AUTO) 9.7 %; MEAN CORPUSCULAR HEMOGLOBIN 30.8 pg (27.0-31.0); MEAN CORPUSCULAR HGB CONC 34.3 g/dL (32.0-36.0); MEAN CORPUSCULAR VOLUME 89.8 fL (81.0-99.0); MEAN PLATELET VOLUME 9.8 fL (7.9-10.8); MONOCYTES % (AUTO) 13.2 %; NEUTROPHILS # (AUTO) 5.8 10^3/uL (1.5-6.6); NEUTROPHILS % (AUTO) 75.4 %; PLT - PLATELET COUNT 195 10^3/uL (130-450); RED CELL DISTRIBUTION WIDTH 12.3 % (12.0-15.0); WHITE BLOOD COUNT 7.7 x10^3/uL (4.8-10.8)
--- NOTE | 2023-11-02 23:45 | ED Physician Documentation ---
PD HPI ABD PAIN - Stated complaint Stated Complaint: RLQ PX - Chief complaint Chief Complaint: Abd Pain - History obtained from History obtained from: Patient - Additional information Additional information: Patient is a 72-year-old female with a history of a known femoral hernia presenting for evaluation of right lower quadrant pain starting this evening. Patient states that she has been coughing for the last month and was told she has bronchitis by the walk-in clinic. She was coughing this evening and started to feel worsening pain in the right lower abdomen. She does have a hernia in the groin that she states was bulging out earlier but is no longer. However she continues to report having pain in the right lower quadrant. No nausea or vomiting. No diarrhea. No fever. Cough has been nonproductive. Review of Systems Constitutional: denies: Fever Cardiac: denies: Chest pain / pressure Respiratory: reports: Cough. denies: Dyspnea GI: reports: Abdominal Pain. 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 HEENT: Cataracts, Tonsil/Adenoidectomy - Present Medications Home Medications: Ambulatory Orders Medication Instructions Recorded Confirmed Levothyroxine [Synthroid] 25 mcg PO DAILY 05/04/16 11/03/20 Montelukast [Singulair] 10 mg PO QPM 05/04/16 11/03/20 Calcium Carbonate [Calcium] 600 mg PO DAILY 10/25/18 11/03/20 Amox/Clav 875/125 [Augmentin] 1 each PO Q12H #20 tablet 11/03/20 Ipratropium [place] 1 spray EMMANUEL BID 11/03/20 11/03/20 - Allergies Allergies/Adverse Reactions: Allergies Allergy/AdvReac Type Severity Reaction Status Date / Time aspirin Allergy Hives Verified 11/02/23 23:08 codeine Allergy Unknown Verified 11/02/23 23:08 ibuprofen Allergy Hives Verified 11/02/23 23:08 shellfish derived Allergy Cramps Verified 11/02/23 23:08 clarithromycin AdvReac Anxiety Verified 11/02/23 23:08 chocolate AdvReac Headache Uncoded 11/02/23 23:08 - Social History Does the pt smoke?: No Smoking Status: Never smoker Does the pt drink ETOH?: No Does the pt have substance abuse?: No - Immunizations Immunizations are current?: Yes - POLST Patient has POLST: No PD ED PE NORMAL - General General: Alert and oriented X 3, No acute distress, Well developed/nourished - HEENT HEENT: Atraumatic, Moist mucous membranes, Pharynx benign - Neck Neck: Supple, no meningeal sign - Cardiac Cardiac: RRR, Strong equal pulses - Respiratory Respiratory: No respiratory distress, Clear bilaterally - Abdomen Abdomen: Normal bowel sounds, Soft, Non distended, Other (Right lower quadrant tenderness, no palpable mass or hernia in the abdomen or groin) - Derm Derm: Warm and dry - Neuro Neuro: Normal speech Results - Vitals Vitals: Vital Signs - 24 hr 11/02/23 11/03/23 11/03/23 23:08 00:22 01:12 Temperature 36.1 C L Heart Rate 88 88 80 Respiratory 16 18 18 Rate Blood Pressure 188/80 H 136/66 H 137/77 H O2 Saturation 99 97 95 Oxygen O2 Source Room air - Labs Labs: Laboratory Tests 11/02/23 11/02/23 23:08 23:08 WBC 7.7 RBC 4.00 L Hgb 12.3 Hct 35.9 L MCV 89.8 MCH 30.8 MCHC 34.3 RDW 12.3 Plt Count 195 MPV 9.8 Neut # (Auto) 5.8 Lymph # (Auto) 0.8 L [place] # (Auto) 1.0 Eos # (Auto) 0.1 Baso # (Auto) 0.0 Absolute Nucleated RBC 0.00 Nucleated RBC % 0.0 Sodium 129 L Potassium 3.4 L Chloride 95 L Carbon Dioxide 24 Anion Gap 10.0 BUN 12 Creatinine 0.9 Estimated GFR (MDRD) 61 L Glucose 146 H Calcium 9.2 Total Bilirubin 0.6 AST 13 ALT 6 L Alkaline Phosphatase 73 Total Protein 6.1 L Albumin 3.9 Globulin 2.2 Albumin/Globulin Ratio 1.8 Lipase 14 PD Medical Decision Making - ED course Complexity details: reviewed results, d/w patient ED course: Patient is a 72-year-old female presenting for evaluation of right lower quadrant abdominal pain starting this evening. Has a known femoral hernia that she felt had popped out and was causing pain. On my exam it appears to be reduced and she already reports pain is improved but she does have still some tenderness in the right lower quadrant. Additionally she has been having a cough for the last month and has been seen at the walk-in clinic and told she has bronchitis. She has been using albuterol at home. No fevers. CBC, chemistries were reviewed. Sodium of 129. No UTI symptoms. Chest x-ray which I reviewed is negative for pneumonia. CT scan of the abdomen and pelvis shows a normal appendix and no other acute findings. In regards to her cough she has been using albuterol and Tessalon without significant improvement. Will give a dose of Decadron to see if this helps. No findings to warrant antibiotics at this time. Patient counseled on continued supportive care as well as need for follow-up with general surgery. Advised on concerning symptoms to return for. Departure - Departure Disposition: 01 Home, Self Care Clinical Impression: RLQ abdominal pain, Cough, Hyponatremia Condition: Stable Instructions: ED Abdominal Pain Female Non-Specific Abdominal Pain, ED Bronchitis Asthmatic Comments: The CT scan of the abdomen does not show signs of appendicitis or other significant findings. Your chest x-ray is also clear and does not show signs of pneumonia. I have given you a dose of a long-acting steroid called Decadron here to see if this helps with the bronchitis. Continue with the albuterol inhaler as needed. Please continue to have close follow-up with a general surgeon in regards to your hernia. Your salt level was slightly low. I would recommend close follow-up with your primary care provider regarding this for recheck and to make sure that it is not worsening. Return to the ER with any Recurrent symptoms or worsening. Forms: PCP List Discharge Date/Time: 11/03/23 01:17
[2023-11-02 23:47] LABS: ALBUMIN 3.9 g/dL (3.2-5.5); ALBUMIN/GLOBULIN RATIO 1.8 (1.0-2.2); BILIRUBIN,TOTAL 0.6 mg/dL (0.2-1.0); CALCIUM 9.2 mg/dL (8.5-10.3); CREATININE 0.9 mg/dL (0.6-1.3); POTASSIUM 3.4 mmol/L (3.5-4.5); TOTAL PROTEIN 6.1 g/dL (6.4-8.9)
[2023-11-02] MEDS ORDERED: iohexoL-300 100 ML VIAL ONE (23:56)
[2023-11-03] MEDS: iohexoL-300 100 ML VIAL IVP ONE (00:27)
--- NOTE | 2023-11-03 00:37 | XRAY Report ---
PROCEDURE: Chest 1V INDICATIONS: cough x 1 month TECHNIQUE: One view of the chest was acquired. COMPARISON: 10/19/2023. FINDINGS: Surgical changes and devices: None. Lungs and pleura: No pleural effusions or pneumothorax. Lungs are clear. Mediastinum: Mediastinal contours appear normal. Heart size is normal. Bones and chest wall: No suspicious bony lesions. Overlying soft tissues appear unremarkable. IMPRESSION: No acute cardiopulmonary process. Reviewed by: Fito Ahumada MD on 11/03/2023 12:36 AM PDT Approved by: Fito Ahumada MD on 11/03/2023 12:36 AM PDT Station ID: [id number]
--- NOTE | 2023-11-03 00:43 | CT Report ---
PROCEDURE: Abdomen/Pelvis W INDICATIONS: RLQ pain CONTRAST: Omni 300, 100mls TECHNIQUE: After the administration of intravenous contrast, a CT scan of the abdomen and pelvis was performed. Images were recorded and evaluated at appropriate window settings. Reformats: coronal and sagittal. F or radiation dose reduction, the following was used: automated exposure control, adjustment of mA and /or kV according to patient size. COMPARISON: 11/03/2020, 05/04/2016. FINDINGS: Image quality: Diagnostic. Lower chest: Dependent atelectasis in posterior aspect of bilateral lung bases are seen. Heart size i s normal, no pericardial effusion. Liver: No solid mass. Well-circumscribed hypodense areas are seen scattered in the liver parenchyma m easures up to 2.4 x 2.2 cm in size in left hepatic lobe and measures 22 Hounsfield unit in density. F inding is not significantly changed from 2016 studies and likely represent hepatic cysts. Gallbladder: Multiple calcified stones are noted in dependent portion of gallbladder lumen. No gallbl adder wall thickening. Biliary tree: No intrahepatic or extrahepatic dilation, accounting for age. Spleen: No splenomegaly. Pancreas: No pancreatic ductal dilation. Adrenals: No adrenal nodule. Kidneys and ureters: There is no renal stones. Bilateral peripelvic renal cysts are seen. No hydronep hrosis. No gross solid-appearing renal lesion. Stomach, bowel and peritoneum: No gastric or small bowel dilation. No abnormal wall thickening. No pa thologic free fluid. Appendix is visualized and is within normal limits. Colonic diverticulosis is se en without CT evidence of acute diverticulitis. Lymph nodes: No central or retroperitoneal adenopathy. Vessels: No infrarenal aortic aneurysm. Patent portal vein. PELVIS Reproductive organs: Unremarkable. Bladder: No abnormal wall thickening, accounting for underdistention. Pelvic lymph nodes: No pelvic adenopathy by size criteria. Bones: No aggressive osseous abnormality. Other: No significant ventral or inguinal hernia. IMPRESSION: 1. Normal appendix. No bowel obstruction or abnormal bowel wall thickening. No free fluid of free air . Sigmoid diverticulosis without CT evidence of acute diverticulitis. No free fluid of free air. 2. No obstructing renal stones or hydronephrosis. 3. Cholelithiasis without CT evidence of acute cholecystitis. 4. Stable appearing hepatic cysts. Reviewed by: Fito Ahumada MD on 11/03/2023 12:42 AM PDT Approved by: Fito Ahumada MD on 11/03/2023 12:42 AM PDT Station ID: [id number]
[2023-11-03] MEDS: CHERRY SYRUP 10 ML UDC PO ONE (01:06)
[2023-11-03] MEDS: DEXAMETHASONE 10 MG/ML VIAL PO STA (01:06)
[2023-11-03 01:25] VITALS: BP 137/77; O2SAT 95
== END 2023-11-03 01:17 | disposition home or self-care (01) ==
LOC: EDUNIT# → ED 23:06
DX: R10.31 Right lower quadrant pain (principal); K41.90 Unilateral femoral hernia, without obstruction or gangrene, not specified as recurrent; E87.1 Hypo-osmolality and hyponatremia; J40 Bronchitis, not specified as acute or chronic
CPT/HCPCS: 36415; 71045; 74177; 80053; 83690; 85025; 99283; A9270; Q9967

== ENCOUNTER 2023-12-27 08:56 | Outpatient (CLI) | payer MEDICARE ==
[2023-12-27 15:36] LABS: ALBUMIN 3.9 g/dL (3.2-5.5); ALBUMIN/GLOBULIN RATIO 1.6 (1.0-2.2); ALKALINE PHOSPHATASE 68 IU/L (42-121); ALT ALANINE AMINOTRANSFERASE 13 IU/L (10-60); AST ASPARTATE AMINOTRANSFERASE 15 IU/L (10-42); BILIRUBIN,TOTAL 0.4 mg/dL (0.2-1.0); BUN - BLOOD UREA NITROGEN 23 mg/dL (6-20); CALCIUM 9.1 mg/dL (8.5-10.3); CARBON DIOXIDE - CO2 28 mmol/L (21-32); CHLORIDE 105 mmol/L (101-111); CREATININE 0.9 mg/dL (0.6-1.3); CRP - C-REACTIVE PROTEIN < 0.5 mg/dL (<0.5); GFR - MDRD 61 (>89); GLUCOSE 119 mg/dL (74-104); POTASSIUM 3.8 mmol/L (3.5-4.5); SODIUM 139 mmol/L (135-145); TOTAL PROTEIN 6.4 g/dL (6.4-8.9); URIC ACID 6.4 mg/dL (2.3-6.6)
[2023-12-27 16:03] LABS: RHEUMATOID FACTOR NEGATIVE (Negative)
[2023-12-28 21:07] LABS: ANTI-DNA (DS) AB QN <1 IU/mL (0-9)
[2023-12-29 19:07] LABS: ANTINUCLEAR ANTIBODIES IFA Negative (.)
== END 2023-12-27 08:57 | disposition home or self-care (01) ==
LOC: LAB.S 08:56
PROVIDERS: ATTEND Internal Medicine
DX: E87.1 Hypo-osmolality and hyponatremia (principal); M13.80 Other specified arthritis, unspecified site
CPT/HCPCS: 36415; 80053; 84550; 85651; 86038; 86140; 86225; 86430

== ENCOUNTER 2024-01-25 07:00 | Outpatient (CLI) | payer MEDICARE ==
--- NOTE | 2024-01-25 14:44 | XRAY Report ---
PROCEDURE: Chest 2V INDICATIONS: ACUTE COUGH TECHNIQUE: 2 views of the chest were acquired. COMPARISON: 11/03/2023 FINDINGS: Surgical changes and devices: None. Lungs and pleura: No pleural effusions or pneumothorax. Lungs are clear. Mediastinum: Mediastinal contours appear normal. Heart size is normal. Bones and chest wall: No suspicious bony lesions. Overlying soft tissues appear unremarkable. IMPRESSION: No acute cardiopulmonary abnormality. Reviewed by: Rajan Henderson MD on 01/25/2024 2:42 PM PDT Approved by: Rajan Henderson MD on 01/25/2024 2:42 PM PDT Station ID: [id number]
== END 2024-01-25 23:59 | disposition home or self-care (01) ==
LOC: DI.S 07:00
PROVIDERS: ATTEND Registered Nurse
DX: R05.1 Acute cough (principal)